=== PATIENT | female | born 1960 | race Caucasian/White ===

== ENCOUNTER → 2023-06-16 | Outpatient (CLI) | payer BC | END | disposition home or self-care (01) | LOC: PREOP 05:37 | PROVIDERS: ATTEND Surgery | DX: Z01.818 Encounter for other preprocedural examination (principal) ==

== ENCOUNTER 2023-08-11 05:29 | Outpatient (CLI) | payer BC ==
[~2023-08-11] VITALS: Ht 180.3 cm; Wt 132.2 kg
[2023-08-12] MEDS ORDERED: CHOL400T3 PO (09:18)
[2023-08-12] MEDS ORDERED: UMEC62.5 IH (09:18)
[2023-08-12] MEDS ORDERED: FLUT1DIS26 IH (09:18)
[2023-08-12] MEDS ORDERED: OMEG100032 PO (09:18)
[2023-08-12] MEDS ORDERED: DAPA10TA PO (09:18)
[2023-08-12] MEDS ORDERED: ROSU40TA23 PO (09:18)
[2023-08-12] MEDS ORDERED: MULT-593 PO (09:18)
[2023-08-12] MEDS ORDERED: GBPN600T PO (09:18)
[2023-08-12] MEDS ORDERED: METF-846 PO (09:18)
[2023-08-12] MEDS ORDERED: AMLO-251 PO (09:18)
[2023-08-12] MEDS ORDERED: LOSA1TAB23 PO (09:18)
[2023-08-12] MEDS ORDERED: FENO145T26 PO (09:18)
[2023-08-12] MEDS ORDERED: LEVO5TAB12 PO (09:18)
[2023-08-12] MEDS ORDERED: BISO10TA6 PO (09:18)
[2023-08-12] MEDS ORDERED: INSU100I32 SQ (09:18)
== END 2023-08-12 09:19 | disposition home or self-care (01) ==
LOC: EDSEX 05:29 → PREOP 05:29
PROVIDERS: ATTEND Surgery
DX: Z01.818 Encounter for other preprocedural examination (principal)

== ENCOUNTER 2023-08-23 07:33 | Day surgery (SDC) | payer BC ==
[~2023-08-23] VITALS: Ht 180.3 cm; Wt 132.2 kg
[~2023-08-23 07:33] MED LIST: AMLO-251 PO; BISO10TA6 PO; CHOL400T3 PO; DAPA10TA PO; FENO145T26 PO; FLUT1DIS26 IH; GBPN600T PO; INSU100I32 SQ; LEVO5TAB12 PO; LOSA1TAB23 PO; METF-846 PO; MULT-593 PO; OMEG100032 PO; ROSU40TA23 PO; UMEC62.5 IH
[2023-08-23] MEDS ORDERED: LACTATED RINGERS 1,000 ML 1,000 ML IV STA (07:40)
[2023-08-23 07:51] VITALS: BP 125/65
[2023-08-23 09:00] VITALS: BP 95/53
--- NOTE | 2023-08-23 09:00 | Progress Note-Post Operative ---
Post-Operative Progess Note Surgeon (s)/Waterworks Pump Station Operator (s) Surgeon LESTER URBINA DO Waterworks Pump Station Operator: none Pre-Operative Diagnosis Screening Post-Operative Diagnosis Polyps Diverticula int hemorrhoids Procedure & Operative Findings Date of Procedure 08/23/23 Procedure Performed/Findings Colonoscopy with snare polypectomy Colonoscopy with hot biopsy PROCEDURE NOTE: After informed consent was obtained, the patient was brought to the endoscopy suite, placed in bed in left lateral decubitus position. He was administered IV sedation by the DAY CAMP UNIT LEADER who then monitored his vitals the entire time, heart rate, blood pressure and pulse ox and the scope was inserted, pushed in toward the cecum and in the Ascending colon found a small flat polyp. I elected to do a hot biopsy and took it completely out in two pieces. Then pushed all the way to about 150 cm and pushed into the cecum, took a picture of appendiceal orifice and noted the ileocecal valve. Slowly withdrew the scope insufflating to look circumferentially at the rosa starting in the cecum, up the ascending colon to the hepatic flexure, then down the transverse colon to the splenic flexure and into the descending colon. I found two larger polyps here and removed them completely with the snare. Continued down into the sigmoid and then into the rectum; where I found two more polyps that I also removed with the snare. Finally, in the rectal vault I retroflexed the scope and took a picture of the internal hemorrhoids. I had also taken a picture of the diverticula on the way in. The patient tolerated the procedure. He was recovered in endoscopy suite. Recommended for repeat colonoscopy in 3 years. Anesthesia Type IV sedation by [employer]IT LEADER Estimated Blood Loss Estimated blood loss (mL): scant Specimens/Packing Specimens Removed Asc colon polyp Desc colon polyp x 2 Rectal polyp x 2 LESTER URBINA DO Aug 23, 2023 09:00
--- NOTE | 2023-08-23 09:01 | Endoscopy Discharge Instruct ---
Endo Procedure/Findings Findings 1.: Polyp 2.: Diverticulosis 3.: Internal Hemorrhoids Discharge Instructions - Activity: You might feel a little sleepy until tomorrow. This is due to the medicine you received to relax you. Until tomorrow, you should: NOT drive a car, operate machinery or power tools. NOT drink any alcoholic beverages. NOT make any important decisions or sign importortant papers. Do not return to work until tomorrow, unless otherwise instructed. Resume previous activities tomorrow. Diet: Start by taking liquids. If you tolerate liquids, advance to solid food. 1.: Colonscopy in 3 years Notify Physician - If you experience excessive bleeding, unusual abdominal pain, fever, or chest pain, contact your doctor immediately. Follow-Up: Other Follow up in my office in one week LESTER URBINA DO Aug 23, 2023 09:01
[2023-08-23 09:05] VITALS: BP 108/55
[2023-08-23 09:45] VITALS: BP 108/55
--- NOTE | 2023-08-23 11:43 | Anesthesia-General Post-Op ---
MAC Patient Condition Mental Status/LOC: Same as Preop Cardiovascular: Satisfactory Nausea/Vomiting: Absent Respiratory: Satisfactory Pain: Controlled Complications: Absent Post Op Complications Complications None Follow Up Care/Instructions Patient Instructions None needed. Anesthesiology Discharge Order Discharge Order Patient is doing well, no complaints, stable vital signs, no apparent adverse anesthesia problems. No complications reported per nursing. WILDER BASSETT CRNA Aug 23, 2023 11:43
== END 2023-08-23 09:45 | disposition home or self-care (01) ==
LOC: EDSEX → ENDO 07:33
PROVIDERS: ATTEND Surgery
DX: Z12.11 Encounter for screening for malignant neoplasm of colon (principal); D12.2 Benign neoplasm of ascending colon; D12.4 Benign neoplasm of descending colon; K62.1 Rectal polyp; K57.30 Diverticulosis of large intestine without perforation or abscess without bleeding; K64.8 Other hemorrhoids; E66.9 Obesity, unspecified; Z68.41 Body mass index [BMI] 40.0-44.9, adult
CPT/HCPCS: 82947; 88305